=== PATIENT | female | born 1985 | race Caucasian/White ===

== ENCOUNTER 2025-01-03 14:57 | Emergency (ER) | payer OTHER ==
[~2025-01-03] VITALS: Ht 165.1 cm; Wt 73.0 kg
[2025-01-03 16:15] VITALS: TEMP 98.5
[2025-01-03 18:23] VITALS: BP 116/69; PULSE 79; RESP 18; O2SAT 99
[2025-01-03] MEDS: ACETAMINOPHEN 500 MG TABLET PO ONE (18:27)
== END 2025-01-03 19:03 ==
LOC: EMS 14:57
DX: M25.532 Pain in left wrist (principal); F32.A Depression, unspecified; G89.29 Other chronic pain; M54.50 Low back pain, unspecified
CPT/HCPCS: 99283

== ENCOUNTER 2025-01-18 11:50 | Emergency (ER) | payer OTHER ==
[~2025-01-18] VITALS: Ht 165.1 cm; Wt 80.9 kg
[2025-01-18 12:11] VITALS: BP 110/76; PULSE 59; RESP 16; TEMP 98.6; O2SAT 100
[2025-01-18] MEDS: ACETAMINOPHEN 500 MG TABLET PO ONE (12:43)
[2025-01-18] MEDS: IBUPROFEN 600 MG TABLET PO ONE (12:43)
== END 2025-01-18 15:00 ==
LOC: EMS 11:52
DX: S63.602A Unspecified sprain of left thumb, initial encounter (principal); W19.XXXA Unspecified fall, initial encounter; Y93.89 Activity, other specified; Y92.89 Other specified places as the place of occurrence of the external cause; Y99.8 Other external cause status
CPT/HCPCS: 29280; 99284; 73110-TC; 73130-TC; Z7502; Z7610